=== PATIENT | male | born 1960 | race Caucasian/White ===

== ENCOUNTER 2022-02-12 16:26 | Outpatient (CLI) | payer OTHER, SELFPAY ==
--- NOTE | 2022-02-12 | XR_ITS ---
WS: [id number] ABDOMEN KUB CLINICAL INFORMATION: Flank pain COMPARISON: None. FINDINGS: Suspected calculi projected over the RIGHT UPJ and proximal ureter measuring 6 mm. Recommen d further evaluation with CT stone protocol. No visualized LEFT renal parenchymal or ureteral calculi . Pelvic phleboliths. Normal bowel gas pattern. Scattered air and normal caliber small and large bowel. No significant sudheer l distention. XR/XR KUB [id number] Impression: Suspected calculus projected over the RIGHT UPJ measuring 6 mm.. Recommend furt her evaluation with CT stone protocol.
== END 2022-02-12 16:27 | disposition home or self-care (01) ==
LOC: RADOUTREAD 16:30
PROVIDERS: Family Provider Internal Medicine; PCP Internal Medicine; Visit Provider Nurse Practitioner
DX: M54.9 Dorsalgia, unspecified (principal)
CPT/HCPCS: 74018